=== PATIENT | male | born 1960 | race Two or more races ===

== ENCOUNTER 2022-07-20 06:29 | Emergency (ER) | payer OTHER ==
[~2022-07-20] VITALS: Ht 170.2 cm; Wt 77.1 kg
[2022-07-20] MEDS ORDERED: SIMVASTATIN5 MG (06:39)
[2022-07-20] MEDS ORDERED: INTEGRA PLUS C1 EACH (06:39)
[2022-07-20] MEDS ORDERED: VITAMIN D310 MC2 (06:40)
== END 2022-07-20 10:41 | disposition home or self-care (01) ==
LOC: ER 06:29
DX: J40 Bronchitis, not specified as acute or chronic (principal)

== ENCOUNTER 2022-12-28 07:35 | Outpatient (CLI) | payer OTHER ==
[~2022-12-28 07:35] MED LIST: INTEGRA PLUS C1 EACH; SIMVASTATIN5 MG; VITAMIN D310 MC2
== END 2022-12-28 07:41 | disposition home or self-care (01) ==
LOC: RAD 07:35
PROVIDERS: ATTEND Surgery
DX: K56.2 Volvulus (principal); K56.5 Intestinal adhesions [bands] with obstruction (postinfection); K62.89 Other specified diseases of anus and rectum; K59.09 Other constipation

== ENCOUNTER 2023-01-04 05:00 | Day surgery (SDC) | payer OTHER ==
[~2023-01-04] VITALS: Ht 170.2 cm; Wt 77.1 kg
[2023-01-04] MEDS ORDERED: OXYC1TAB9 PO (09:58)
== END 2023-01-04 15:35 | disposition home or self-care (01) ==
LOC: CIR.AMB 05:00
PROVIDERS: ATTEND Surgery
DX: K64.2 Third degree hemorrhoids (principal); K62.5 Hemorrhage of anus and rectum; K64.8 Other hemorrhoids; K64.4 Residual hemorrhoidal skin tags; K62.89 Other specified diseases of anus and rectum; K59.09 Other constipation; Z20.822 Contact with and (suspected) exposure to COVID-19; I10 Essential (primary) hypertension

== ENCOUNTER 2024-05-01 08:44 | Emergency (ER) | payer OTHER ==
[~2024-05-01] VITALS: Ht 170.2 cm; Wt 68.9 kg
[~2024-05-01 08:44] MED LIST changes: +OXYC1TAB9 PO
[2024-05-01] MEDS ORDERED: FERROCITE324 MG (09:32)
[2024-05-01] MEDS ORDERED: MINERAL OIL 30 ML BLIST.PACK PO ONE (09:45)
[2024-05-01] MEDS ORDERED: LACTULOSE 20 G/30 ML BLIST.PACK PO ONE (09:45)
[2024-05-01] MEDS ORDERED: MAGNESIUM HYDROXIDE 30 ML BLIST.PACK PO ONE (09:58)
[2024-05-01] MEDS ORDERED: LACTULOSE 20 G/30 ML BLIST.PACK ONE (09:58)
[2024-05-01] MEDS ORDERED: MINERAL OIL 30 ML BLIST.PACK ONE (09:58)
[2024-05-01] MEDS ORDERED: BARIUM SULFATE 450 ML ORAL.SUSP PO ONE (09:59)
[2024-05-01] MEDS ORDERED: MAGNESIUM HYDROXIDE 400 MG/5 ML ML PO ONE (10:00)
[2024-05-01 10:22] LABS: HEMATOCRIT 42.3 % (39.0-48.0); HEMOGLOBIN 14.8 g/dL (13-16.00); MEAN CELL VOLUME 87.3 fL (80.0-100.00); MEAN CORPUSCULAR HEMOGLOBIN 30.6 pg (27.00-32.0); PLATELET COUNT 312 K/uL (150-450); RED BLOOD COUNT 4.84 M/uL (4.00-6.00)
[2024-05-01 11:05] LABS: CALCIUM 9.6 mg/dL (8.5-10.1); CREATININE SERUM 0.86 mg/dL (0.70-1.30); GFR 90.4; POTASSIUM 3.96 mEq/L (3.5-5.1)
== END 2024-05-01 14:50 | disposition home or self-care (01) ==
LOC: ER 08:46
PROVIDERS: Emergency Medicine
DX: K59.09 Other constipation (principal)
CPT/HCPCS: 36415; 74177; Q9965

== ENCOUNTER 2024-06-13 07:51 | Outpatient (CLI) | payer OTHER ==
[~2024-06-13 07:51] MED LIST changes: +FERROCITE324 MG
== END 2024-06-13 08:02 | disposition home or self-care (01) ==
LOC: TOM 07:51
PROVIDERS: ATTEND Internal Medicine
DX: R10.9 Unspecified abdominal pain (principal)